=== PATIENT | female | born 1990 | race African-American/Black ===

== ENCOUNTER 2017-03-29 16:23 | Emergency (ER) | payer MEDICAID ==
[~2017-03-29] VITALS: Ht 165.1 cm; Wt 86.2 kg
[~2017-03-29 16:23] MED LIST: IBUPROFEN600 MG ORAL; NKM; ROBAXIN-750750 MG PO
[2017-03-29] MEDS ORDERED: Acetaminophen 500mg (ES) tab ORAL ONE (17:00)
[2017-03-29] MEDS ORDERED: Bacitracin Oint UD TOPIC ONE (17:15)
[2017-03-29 17:17] VITALS: BP 108/74
[2017-03-29] MEDS ORDERED: BACITRACIN15 GM TOPIC (18:34)
[2017-03-29 19:50] VITALS: BP 134/78
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
--- NOTE | 2017-03-30 10:25 | Diagnostic Imaging Report ---
Indication: PAIN Technique: Transabdominal and transvaginal images Comparison: None Findings: Uterus measures 13 cm length by 8.1 cm AP. Within the endometrium, there is a gestational sac. This contains a pole which adjacent crown-rump length of 6 mm, corresponding to an estimated gestational age of 12 weeks 3 days. Estimated gestational age by dates is 11 weeks 5 days. Estimated date of delivery is 10/08/2017 by ultrasound measurements. There is positive heart activity, heart rate 171 beats for minute. No subchorionic hemorrhage demonstrated. Or adenoma in the abnormality. Left ovary measures 3.7 cm in length. The right ovary could not be identified. No adnexal mass. Impression: 12 week 3 day, by crown-rump length measurement, single live intrauterine . No unusual features Negative for adnexal mass. Note, however, inability to visualize the right ovary
== END 2017-03-29 19:50 | disposition home or self-care (01) ==
LOC: EMR 16:47
DX: O26.891 Other specified pregnancy related conditions, first trimester (principal); Z3A.12 12 weeks gestation of pregnancy; S00.81XA Abrasion of other part of head, initial encounter; V43.62XA Car passenger injured in collision with other type car in traffic accident, initial encounter; Y92.481 Parking lot as the place of occurrence of the external cause
CPT/HCPCS: 76801; 99284

== ENCOUNTER 2017-05-13 14:05 | Emergency (ER) | payer MEDICAID ==
[~2017-05-13] VITALS: Ht 165.1 cm; Wt 99.8 kg
[~2017-05-13 14:05] MED LIST changes: +BACITRACIN15 GM TOPIC
[2017-05-13] MEDS ORDERED: PRENATAL FORMU1 EAC5 PO (14:16)
[2017-05-13 14:30] VITALS: BP 109/72
[2017-05-13] MEDS ORDERED: Acetaminophen 500mg (ES) tab ORAL ONE (14:45)
[2017-05-13] MEDS ORDERED: Bacitracin Oint UD TOPIC ONE (16:00)
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
[2017-05-13] MEDS ORDERED: BACITRACIN-P28.35 GM TP (16:08)
[2017-05-13] MEDS ORDERED: TYLENOL EXTRA500 MG ORAL (16:08)
[2017-05-13 16:28] VITALS: BP 115/71
--- NOTE | 2017-05-15 09:15 | Diagnostic Imaging Report ---
Indication: Bleeding in early Technique: Obstetrical ultrasound Comparison: None. Findings: There is a single live intrauterine fetus is active. heart rate is 142 beats per minute. Amniotic fluid is within normal limits. The placenta is anterior. There is no placenta previa. Having is not well evaluated on this study. Posterior fossa, intracranial ventricles, stomach, or chambered view of the heart, and bladder appear normal. spine is not well evaluated on this study. Measurements are as follows: BPD 19 weeks 4 days. Head circumference 19 weeks. Abdominal circumference 19 weeks. Femur length 19 weeks one day. Average ultrasound gestational age is 19 weeks one day. Impression: Single live intrauterine fetus with gestational age of 19 weeks one day. Normal parameters. Anterior placenta. No placenta previa. Inadequate evaluation of anatomy.
== END 2017-05-13 16:28 | disposition home or self-care (01) ==
LOC: EMR 14:21
DX: O26.892 Other specified pregnancy related conditions, second trimester (principal); Z3A.17 17 weeks gestation of pregnancy; S40.211A Abrasion of right shoulder, initial encounter; V43.52XA Car driver injured in collision with other type car in traffic accident, initial encounter; Y92.410 Unspecified street and highway as the place of occurrence of the external cause
CPT/HCPCS: 76815; 99284

== ENCOUNTER 2018-11-14 15:30 | Emergency (ER) | payer MEDICAID ==
[~2018-11-14] VITALS: Ht 165.1 cm; Wt 86.2 kg
[~2018-11-14 15:30] MED LIST changes: +BACITRACIN-P28.35 GM TP; +PRENATAL FORMU1 EAC5 PO; +TYLENOL EXTRA500 MG ORAL
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
[2018-11-14 16:05] VITALS: BP 105/68
[2018-11-14] MEDS ORDERED: IBUPROFEN600 MG ORAL (17:18)
[2018-11-14 18:00] VITALS: BP 105/68
--- NOTE | 2018-11-14 18:00 | NUR ---
ED Nurse Note: Pt cleared by health care provider for discharge. ACI given and explained to pt and verbalized understanding. All medical devices such as ID band removed. Pt left with all personal belongings. Pt is AAO x4 and ambulates with steady gait.
--- NOTE | 2018-11-15 10:23 | Diagnostic Imaging Report ---
Indication: Hand pain Technique: 3 views left hand Comparison: None Findings: No acute fractures. No dislocations. The joint spaces are preserved Impression: Negative
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
== END 2018-11-14 18:00 | disposition home or self-care (01) ==
LOC: EMR 17:35
DX: S60.222A Contusion of left hand, initial encounter (principal); W22.8XXA Striking against or struck by other objects, initial encounter; Y92.69 Other specified industrial and construction area as the place of occurrence of the external cause
CPT/HCPCS: 99283

== ENCOUNTER 2019-05-28 13:17 | Emergency (ER) | payer MEDICAID ==
[~2019-05-28] VITALS: Ht 165.1 cm; Wt 90.7 kg
[2019-05-28 13:28] VITALS: BP 135/74
--- NOTE | 2019-05-28 13:35 | NUR ---
ED Nurse Note: Patient walked into ED c/o right arm and right leg pain s/p pain tripped and fell this morning when she was walking on the street. patient denies any head injury. patient is alert awake x4 ambulatory, breathing unlabored and even.
[2019-05-28] MEDS ORDERED: HYDROcodone/Acetamin 5/325 tab ORAL ONE (14:00)
--- NOTE | 2019-05-28 14:01 | Emergency Room Report ---
History of Present Illness General Chief Complaint: Multiple Trauma/Fall Source: Patient Present Illness HPI 29-year-old female presents to the emergency department complaining of 10 out of 10 severity localized right knee pain, right posterior shoulder and right hip pain status post mechanical trip and fall earlier this morning. Patient denies hitting her head she denies having a loss of consciousness. Patient denies midline neck or back pain. She also reports abrasion to the anterior left knee she reports pain is exacerbated upon attempts to walk and use her right arm. Patient also reports some tenderness to the soft tissue of the right forearm with some swelling and bruising she denies suspicion of fracture in this area. Patient denies and states she has 0 possibility as well. Patient denies taking any yeme-rtb-rhafmmm medications in an attempt to relieve her symptoms. Patient denies any other aggravating or relieving factors at this time. Denies numbness tingling or loss of sensation or gross motor movements of the extremities, incontinence of bowel or bladder. Denies CP , Palpitations, LOC, AMS, dizziness, Changes in Vision, weakness or a sudden severe headache. Allergies: Coded Allergies: No Known Allergies (Unverified , 01/07/15) Patient History Past Medical History: see triage record Past Surgical History: none Pertinent Family History: none Last Menstrual Period: 05/22/2019 Now: No Reviewed Nursing Documentation: PMH: Agreed; PSxH: Agreed Nursing Documentation-PMH Past Medical History: No History, Except For Hx Asthma: Yes Review of Systems All Other Systems: negative except mentioned in HPI Physical Exam Vital Signs Date Time Temp Pulse Resp B/P (MAP) Pulse Ox O2 Delivery O2 Flow Rate FiO2 05/28/19 13:28 98.2 64 20 135/74 (94) 99 Room Air Sp02 EP Interpretation: reviewed, normal General Appearance: no apparent distress, alert, GCS 15, non-toxic Head: normocephalic, atraumatic Eyes: bilateral eye normal inspection, bilateral eye PERRL ENT: hearing grossly normal, normal voice Neck: full range of motion Respiratory: lungs clear, normal breath sounds, speaking full sentences Cardiovascular #1: regular rate, rhythm, normal capillary refill Gastrointestinal: non tender, soft Musculoskeletal: back normal, gait/station normal, normal range of motion, tender - TTP Right knee- mild swelling, no increased laxity, no bruises. TTP Right lateral and posterior hip with moderate ST tenderness, no obvious deformity, no leg length discrepancy, FROM, some upper gluteal and right sided lumbar paraspinal ttp, no midline spinous process ttp. Right shoulder TTP and shoulderblade ttp, FROM no obivous deformity or step-off. ST of the right forearm with TTP, no bruises, swelling or deformity, no bony ttp. Neurologic: alert, oriented x3, responsive, motor strength/tone normal, sensory intact, speech normal, grossly normal Psychiatric: judgement/insight normal Skin: abrasion - left knee abrasion Lymphatic: no adenopathy Medical Decision Making PA Attestation Dr. Sun is my supervising physician whom pt. management has been discussed with. Diagnostic Impression: Primary Impression: Right knee sprain Qualified Codes: S83.91XA - Sprain of unspecified site of right knee, initial encounter Additional Impressions: Muscle strain Multiple contusions Abrasion ER Course 29-year-old female presents to the emergency department complaining of 10 out of 10 severity localized right knee pain, right posterior shoulder and right hip pain status post mechanical trip and fall earlier this morning. Patient denies hitting her head she denies having a loss of consciousness. Patient denies midline neck or back pain. She also reports abrasion to the anterior left knee she reports pain is exacerbated upon attempts to walk and use her right arm. Patient also reports some tenderness to the soft tissue of the right forearm with some swelling and bruising she denies suspicion of fracture in this area. Patient denies and states she has 0 possibility as well. Patient denies taking any mivy-air-eaomxzo medications in an attempt to relieve her symptoms. Patient denies any other aggravating or relieving factors at this time. Denies numbness tingling or loss of sensation or gross motor movements of the extremities, incontinence of bowel or bladder. Denies CP , Palpitations, LOC, AMS, dizziness, Changes in Vision, weakness or a sudden severe headache. Ddx considered but are not limited to Fracture, dislocation, contusion, Sprain/ Strain/Spasm, Head injury, abrasion. Vital signs: are WNL, pt. is afebrile H&PE are most consistent with musculoskeletal injury will perform imaging to r/ o fractures/dislocations. ORDERS: - X-ray's : RIGHT KNEE 3 VIEWS, RIGHT SHOULDER 3 VIEWS, RIGHT HIP 3 Views, - negative for fx, Dislocation, or significant soft tissue injury, per preliminary read in ED, and signed by ANA MARIA Majano, my supervising physician has reviewed, and agrees with my interpretation. ED INTERVENTIONS: - Tdap Vaccination is administered. - Schwertner 5mg PO -Quan wrap applied by communication technician. Pt. remains neurovascularly intact. -Patient is provided with crutches and instructed on their use DISCHARGE: At this time pt. is stable for d/c to home. Will provide printed patient care instructions, and any necessary prescriptions. Care plan and follow up instructions have been discussed with the patient prior to discharge. Labs Test 05/28/19 15:00 Urine HCG, Qualitative Negative (NEGATIVE) Other X-Ray Diagnostic Results Other X-Ray Diagnostic Results #1: X-Ray ordered: Right Shoulder # of Views/Limited Vs Complete: 3 View Indication: Pain EP Interpretation: Yes PA Xray: Interpretation reviewed, by supervising MD, and agrees with findings. Interpretation: no dislocation, no soft tissue swelling, no fractures Impression: No acute disease Electronically Signed by: Eli Majano PA-C Other X-Ray Diagnostic Results #2: X-Ray ordered: Right Knee # of Views/Limited Vs Complete: 3 View Indication: Pain EP Interpretation: Yes PA Xray: Interpretation reviewed, by supervising MD, and agrees with findings. Interpretation: no dislocation, no soft tissue swelling Impression: No acute disease Electronically Signed by: Eli Majano PA-C Other X-Ray Diagnostic Results #3: X-Ray ordered: Right HIP # of Views/Limited Vs Complete: 3 View Indication: Pain EP Interpretation: Yes PA Xray: Interpretation reviewed, by supervising MD, and agrees with findings. Interpretation: no dislocation, no soft tissue swelling, no fractures Impression: No acute disease Electronically Signed by: Eli Majano PA-C Last Vital Signs Date Time Temp Pulse Resp B/P (MAP) Pulse Ox O2 Delivery O2 Flow Rate FiO2 05/28/19 13:38 64 20 Room Air 05/28/19 13:28 98.2 135/74 99 Disposition: HOME, SELF-CARE Condition: Stable Scripts Acetaminophen* (TYLENOL EXTRA STRENGTH*) 500 Mg Tablet 500 MG ORAL Q6H, #20 TAB 0 Refills Prov: Eli Majano 05/28/19 Methocarbamol* (ROBAXIN-750*) 750 Mg Tablet 750 MG PO QID, #28 TAB 0 Refills Prov: Eli Majano 05/28/19 Patient Instructions: Contusion, [id number], Muscle Strain, [id number] Additional Instructions: Take medications as directed. Follow up with a Primary Care Provider in 3-5 days, even if your symptoms have resolved. --Please review list of primary care clinics, if you do not already have a primary care provider Return sooner to ED if new symptoms occur, or current symptoms become worse. Do not drink alcohol, drive, or operate heavy machinery while taking Robaxin/ Muscle relaxers as this may cause drowsiness. - Please note that this Emergency Department Report was dictated using [employer]elli[employer]att[employer] athlete technology software, occasionally this can lead to erroneous entry secondary to interpretation by the dictation equipment. Eli Majano May 28, 2019 14:01
--- NOTE | 2019-05-28 15:28 | Diagnostic Imaging Report ---
Indication: Right knee Pain 3 views of the right knee were obtained. Findings: No acute fracture, malalignment, or joint effusion are identified. Impression: Negative for acute findings.
--- NOTE | 2019-05-28 15:29 | Diagnostic Imaging Report ---
Indication: Right shoulder pain COMPARISON: None Findings: 3 views of the right shoulder were obtained. No acute fractures, malalignment, erosions or periostitis are identified. Soft tissues are unremarkable. Impression: Negative for acute injury
[2019-05-28] MEDS ORDERED: Tetanus/Diptheria/Pertussis IM ONE (15:45)
--- NOTE | 2019-05-28 15:48 | Diagnostic Imaging Report ---
Indications: Right hip pain Findings: Two views of the right hip were obtained. No acute fracture is demonstrated. Alignment of the hip is within normal limits. Soft tissues are unremarkable. Impression: Negative for acute injury. Part of the study limited by motion
[2019-05-28] MEDS ORDERED: ROBAXIN-750750 MG PO (15:57)
[2019-05-28] MEDS ORDERED: TYLENOL EXTRA500 MG ORAL (15:57)
--- NOTE | 2019-05-28 16:11 | NUR ---
ER DISCHARGE NOTE: Patient is cleared to be discharged per AMANDA POLLACK, pt is aox4, on room air, with stable vital signs. pt was given dc and prescription instructions, pt was able to verbalize understanding, pt id band removed without complications. patient had morgan wrap done as ordered, crutches provided, instructions and demonstrations given to the patient, patient verbalized understanding. pt is able to ambulated out with crutches by hersefl. pt took all belongings.
== END 2019-05-28 16:13 | disposition home or self-care (01) ==
LOC: EMR 14:25
DX: S83.91XA Sprain of unspecified site of right knee, initial encounter (principal); S80.212A Abrasion, left knee, initial encounter; T14.8XXA Other injury of unspecified body region, initial encounter; R22.31 Localized swelling, mass and lump, right upper limb; Z23 Encounter for immunization
CPT/HCPCS: 81025; 90471; 90715; 99284